=== PATIENT | female | born 1985 | race Caucasian/White ===

== ENCOUNTER 2016-05-15 08:08 | Inpatient (IN) | payer OTHER ==
[2016-05-15] MEDS ORDERED: LR 1,000 ML IV PRN (08:35)
[2016-05-15] MEDS ORDERED: OXYTOCIN/RINGERS LACTATE 1,000 ML IV PRN (08:35)
[2016-05-15] MEDS ORDERED: TERBUTALINE SULFATE 1 MG/ML VIAL IV PRN (08:35)
--- NOTE | 2016-05-15 08:41 | OBPROG ---
OBG Progress Note Assessment/Plan: Assessment: cat 1 fhr denies contractions discussed poc with pitocin and arom exam 3-/-1 cephalic elevated bp will do pih labs Plan: pitocin per protocol 05/15/16 08:39 05/15/16 08:40 Subjective: Doing well denies difficulties. Denies complaints. Requesting an epidural for pain relief when ready. - SVE Dilation (cm): 3 Effacement (%): 80 Station: -1 Current Contraction Pattern: Irregular FHR (bpm): 130 FHR Pattern Variability: Moderate FHR Category: 1 Membranes: Intact - Physical Exam General Appearance: WD/WN, alert, no apparent distress Respiratory: chest non-tender, lungs clear, normal breath sounds Cardiac/Chest: regular rate, rhythm Abdomen: normal bowel sounds Membranes: Intact DTR- Lower Extremities: Knee (R): 1+, Knee (L): 1+ (no clonus bilaterally) Skin: normal color, warm/dry Neuro/Psych: no motor/sensory deficits, alert, normal mood/affect, oriented x 3 ICD10 Worksheet Patient Problems: Problems Problem Status Onset iol postdates Acute
[2016-05-15] MEDS ORDERED: OXYTOCIN/RINGERS LACTATE 500 ML IV SCH (09:00)
--- NOTE | 2016-05-15 09:24 | GHP ---
DATE OF ADMISSION: 05/15/2016 The patient is a 4, T1, AB2, L1, 30-year-old, with an EDC of 05/15/2015, gestational age is 40 weeks. The patient states feeling positive movement. Denies leaking, bleeding, cramping. Patient is here for induction of labor at post term 40 weeks today. MEDICAL HISTORY: The patient is Rh negative. GBS negative. HSV type 1 positive. History of a hea rt murmur as a child. Has a gluten intolerance. Rare UTIs. History of anxiety. Has previously ta carlos Lexapro; 0 meds in the past 10 years. PAST SURGICAL HISTORY: Previous wisdom tooth extraction and a TAB in 2007. GYNECOLOGICAL HISTORY: History of OCP use. Previous positive HPV 2007 and 2008; zero colpo, zero t reatment, in 11/2014 within normal limits. Pap. PREVIOUS HISTORY: In 03/2012 a male that weighed 7 pounds 13 ounces at 40-5/7 weeks, 6-1/ 2 hours of labor, delivered vaginally with an epidural. Higher blood pressure after 37 weeks. Baby 's name is Jonathon. ALLERGIES: Patient is allergic to ciprofloxacin; complaint is swelling. MEDICATIONS: vitamins with DHEA daily. PLAN OF CARE: 1. Pitocin per protocol. 2. Epidural at patient's request. 3. Expectant management of labor. /[id number]/MODL
[2016-05-15 09:33] LABS: % IMMATURE GRANULYOCYTES 0.4 % (0.0-1.1); ABSOLUTE IMMATURE GRANULOCYTES 0.03 10^3/uL (0.00-0.10); ADD DIFF? NO; ADD MORPH? NO; ADD SCAN? NO; ATYPICAL LYMPHOCYTE FLAG 0 (0-99); FRAGMENT RBC FLAG 0 (0-99); HEMATOCRIT 40.4 % (38.0-47.0); LEFT SHIFT FLG 0 (0-99); LIPEMIA HEMOLYSIS FLAG 90 (0-99); MEAN CELL HEMOGLOBIN 29.9 pg (27.9-34.1); MEAN CELL HEMOGLOBIN CONCENTR. 34.7 g/dL (32.4-36.7); MEAN CELL VOLUME 86.1 fL (81.5-99.8); MEAN PLATELET VOLUME 10.8 fL (8.7-11.7); PLATELET CLUMPS FLAG 0 (0-99); PLATELET COUNT 150 10^3/uL (150-400); RED BLOOD CELL COUNT 4.69 10^6/uL (4.18-5.33); RED CELL DISTRIBUTION WIDTH 13.6 % (11.5-15.2)
[2016-05-15 09:53] LABS: ALANINE AMINOTRANSFERASE 29 IU/L (9-52); ALBUMIN 3.9 g/dL (3.5-5.0); ALKALINE PHOSPHATASE 241 IU/L (38-126); ANION GAP 11 mEq/L (8-16); ASPARTATE AMINOTRANSFERASE 29 IU/L (14-46); BILIRUBIN,TOTAL 0.6 mg/dL (0.1-1.4); BILIRUBIN-CONJUGATED 0.2 mg/dL (0.0-0.5); BILIRUBIN-UNCONJUGATED 0.4 mg/dL (0.0-1.1); CALCIUM 9.5 mg/dL (8.5-10.4); CARBON DIOXIDE 18 mEq/l (22-31); CHLORIDE 105 mEq/L (97-110); CREATININE 0.5 mg/dL (0.6-1.0); GLOMERULAR FILTRATION RATE > 60; GLUCOSE 90 mg/dL (70-100); POTASSIUM 4.7 mEq/L (3.5-5.2); SODIUM 134 mEq/L (134-144); TOTAL PROTEIN 6.9 g/dL (6.3-8.2); URIC ACID 6.5 mg/dL (2.5-6.8)
[2016-05-15] MEDS ORDERED: TERBUTALINE SULFATE 1 MG/ML VIAL ONE (11:02)
[2016-05-15] MEDS ORDERED: AMMONIA AROMATIC 1 EACH AMP IH ONE (11:02)
[2016-05-15] MEDS ORDERED: LIDOCAINE 1% 30 ML SDV ONE (11:02)
[2016-05-15] MEDS ORDERED: MISOPROSTOL 200 MCG TAB ONE (11:03)
[2016-05-15] MEDS ORDERED: OXYTOCIN 10 UNIT/ML VIAL ONE (11:03)
[2016-05-15] MEDS ORDERED: fentaNYL 2MCG/ML/BUP 0.1% RTU 100 ML BAG EP ONE (11:11)
[2016-05-15] MEDS ORDERED: PHENYLEPHRINE HCL 100 MCG/ML SYR ONE (11:11)
[2016-05-15] MEDS ORDERED: BUPIVACAINE 0.25% 30 ML SDV ONE (11:11)
[2016-05-15] MEDS ORDERED: fentaNYL 100 MCG/2 ML INJ ONE (11:12)
--- NOTE | 2016-05-15 11:54 | OBPROG ---
OBG Progress Note Assessment/Plan: Assessment: cat 1 fhr contractions q2-3 minutes epidural for pain relief feeling better after placement pain diminished exam /-1 cephalic arom clear fluid Plan: pitocin infusing, epidural in place3 at patient request change in cervix, arom clear fluid 05/15/16 08:39 05/15/16 08:40 05/15/16 11:52 Objective: 05/15/16 08:39 05/15/16 08:39 Patient ABO/Rh O NEGATIVE 05/15/16 08:39 Uric Acid 6.5 mg/dL (2.5-6.8) 05/15/16 08:39 Total Bilirubin 0.6 mg/dL (0.1-1.4) 05/15/16 08:39 Conjugated Bilirubin 0.2 mg/dL (0.0-0.5) 05/15/16 08:39 Unconjugated Bilirubin 0.4 mg/dL (0.0-1.1) 05/15/16 08:39 AST 29 IU/L (14-46) 05/15/16 08:39 ALT 29 IU/L (9-52) 05/15/16 08:39 - SVE Dilation (cm): 6 Effacement (%): 80 Station: -1 Current Contraction Pattern: Regular FHR (bpm): 130 FHR Pattern Variability: Moderate FHR Category: 1 Membranes: AROM Amniotic Fluid Color: Clear ICD10 Worksheet Patient Problems: Problems Problem Status Onset iol postdates Acute
[2016-05-15] MEDS ORDERED: ONDANSETRON 4 MG/2 ML VIAL IVP PRN (13:58)
[2016-05-15] MEDS ORDERED: PHENYLEPHRINE HCL 100 MCG/ML SYR IVP PRN (13:58)
[2016-05-15] MEDS ORDERED: LR 500 ML IV SCH (14:00)
[2016-05-15] MEDS ORDERED: fentaNYL 2MCG/ML/BUP 0.1% RTU 100 ML EP SCH (14:00)
--- NOTE | 2016-05-15 14:02 | POSTANESTH ---
Post Anesthetic Evaluation Cardiovascular Status: Normal, Stable, Similar to Pre-Op Cond (Tolerated CSE well, stable, comfortable.) Respiratory Status: Normal, Stable, Similar to Pre-op Cond. Level of Consciousness/Mental Status: Can Participate in Eval, Alert and Oriented Pain Control: Adequate, Prn Tx Ordered Nausea/Vomiting Control: Adequate, Prn Tx Ordered Complications Possibly Related to Anesthesia: None Noted
--- NOTE | 2016-05-15 14:05 | PREANESOB ---
Obstetric Pre-Anesthesia Info - General Info Proposed Procedure: Labor and delivery with pitocin. : 4 Para: 1 WBD: 40 - Info Status: Full Term Monitors: External FHR Baseline (bpm): 120 FHR Pattern: Reassuring - Labor Status Cervical Dilation per last OB SVE: 4 Station per last OB SVE: -1 Amniotic Fluid Color: Clear Pitocin: In Use Indications for Labor Analgesia: Induction of Labor, Pain Control Labor Epidural: Proposed Anesthesia ROS: Negative. Allergies/Adverse Reactions: Allergy/AdvReac Type Severity Reaction Status Date / Time ciprofloxacin [From Cipro] Allergy Verified 05/13/11 16:27 ciprofloxacin HCl Allergy Verified 05/13/11 16:27 [From Cipro] wheat Allergy Verified 03/25/12 02:29 Home Medications: Medication Instructions Recorded Lorazepam [Ativan] 0.5 mg PO BID #4 tablet 05/21/14 Visit Medications: Generic Name Dose Route Start Last Admin Trade Name Freq PRN Reason Stop Dose Admin Diphenhydramine HCl 25 - 50 mg 05/15/16 13:58 Benadryl Injection IVP 11/11/16 13:57 Q6HRS PRN Itching Lactated Ringer's 1,000 mls @ 0 mls/hr 05/15/16 08:35 Lr IV 11/11/16 08:34 PRN PRN SEE PROTOCOL CONDITIONS Protocol Per Protocol Oxytocin/Lactated Ringer's 1,000 mls @ 150 mls/hr 05/15/16 08:35 Pitocin 20 Units/Lr (Premix) IV PRN PRN Post- bleeding Oxytocin/Lactated Ringer's 500 mls @ 0 mls/hr 05/15/16 09:00 Pitocin 30 Units/Lr (Premix) IV 11/11/16 08:59 CONT LIANNA Protocol Per Protocol Fentanyl/Bupivacaine HCl 100 mls @ 0 mls/hr 05/15/16 14:00 Fentanyl/Bupivacaine/Ns 2 Mcg/Ml 0.1% (Premix EP 05/25/16 13:59 CONT LIANNA Protocol As Directed Lactated Ringer's 500 mls @ 0 mls/hr 05/15/16 14:00 Lr IV 11/11/16 13:59 CONT LIANNA As Directed Ibuprofen 600 mg 05/15/16 08:35 Motrin PO 11/11/16 08:34 Q6HRS PRN post , inflammation Ondansetron HCl 4 mg 05/15/16 13:58 Zofran IVP 11/11/16 13:57 Q4HRS PRN Nausea/Vomiting, Can't Take PO Phenylephrine HCl 100 mcg 05/15/16 13:58 Jorge Luis-Synephrine IVP 11/11/16 13:57 .Q2M PRN Hypotension Terbutaline Sulfate 0.25 mg 05/15/16 08:35 Brethine IV 11/11/16 08:34 ONCE PRN Tachysystole Discontinued Medications Generic Name Dose Route Start Last Admin Trade Name Freq PRN Reason Stop Dose Admin Ammonia (Aromatic Spirit) Confirm 05/15/16 11:02 Ammonia Aromatic Administered 05/15/16 11:03 Dose 1 each IH .STK-MED ONE Bupivacaine HCl Confirm 05/15/16 11:11 Sensorcaine 0.25% Sdv Administered 05/15/16 11:12 Dose 30 ml .ROUTE .STK-MED ONE Ephedrine Sulfate Confirm 05/15/16 11:02 Ephedrine Sulfate Administered 05/15/16 11:03 Dose 50 mg .ROUTE .STK-MED ONE Fentanyl Confirm 05/15/16 11:12 Sublimaze Administered 05/15/16 11:13 Dose 100 mcg .ROUTE .STK-MED ONE Fentanyl/Bupivacaine HCl Confirm 05/15/16 11:11 Fentanyl/Bupivacaine/Ns 2 Mcg/Ml 0.1% (Premix Administered 05/15/16 11:12 Dose 100 ml EP .STK-MED ONE Lidocaine HCl Confirm 05/15/16 11:02 Lidocaine Hcl 1% Administered 05/15/16 11:03 Dose 30 ml .ROUTE .STK-MED ONE Misoprostol Confirm 05/15/16 11:03 Cytotec Administered 05/15/16 11:04 Dose 1,000 mcg .ROUTE .STK-MED ONE Oxytocin Confirm 05/15/16 11:03 Pitocin Administered 05/15/16 11:04 Dose 40 unit .ROUTE .STK-MED ONE Phenylephrine HCl Confirm 05/15/16 11:11 Jorge Luis-Synephrine Administered 05/15/16 11:12 Dose 1,000 mcg .ROUTE .STK-MED ONE Terbutaline Sulfate Confirm 05/15/16 11:02 Brethine Administered 05/15/16 11:03 Dose 1 mg .ROUTE .STK-MED ONE - Anesthesia History Response to Local Anesthetics: Normal Anesthesia & Operative History: No Prior Problems - Focused Exam Blood Pressure: 122/90 Heart Rate: 94 Respiratory Rate: 18 Height/Weight (Nursing): Height 170.18 cm Weight 70.307 kg Physical Exam: Within normal limits. ASA Status: II Labs: 05/15/16 08:39 05/15/16 08:39 Patient ABO/Rh O NEGATIVE 05/15/16 08:39 Uric Acid 6.5 mg/dL (2.5-6.8) 05/15/16 08:39 Total Bilirubin 0.6 mg/dL (0.1-1.4) 05/15/16 08:39 Conjugated Bilirubin 0.2 mg/dL (0.0-0.5) 05/15/16 08:39 Unconjugated Bilirubin 0.4 mg/dL (0.0-1.1) 05/15/16 08:39 AST 29 IU/L (14-46) 05/15/16 08:39 ALT 29 IU/L (9-52) 05/15/16 08:39 - Plan Anesthetic Plan: CSE Consent Signed and on Chart: Yes Patient/Guardian Understands and Agrees to Plan: Yes
[2016-05-15] MEDS ORDERED: HYDROCORTISONE 0.5% CREAM TP PRN (14:15)
[2016-05-15] MEDS ORDERED: DOCUSATE SODIUM 100 MG CAP PO PRN (14:15)
[2016-05-15] MEDS ORDERED: ACETAMINOPHEN 325 MG TAB PO PRN (14:15)
[2016-05-15] MEDS ORDERED: SIMETHICONE 80 MG TAB CHEW PO PRN (14:15)
[2016-05-15] MEDS ORDERED: HYDROCODONE/APAP 5/325 TAB PO PRN (14:15)
--- NOTE | 2016-05-15 14:15 | OBPROC ---
- Labor and Delivery Onset of Contractions Date: 05/15/16 Onset of Contractions Time: 10:15 Onset of Contractions Type: Induced Rupture of Membranes Date: 05/15/16 Rupture of Membranes Time: 11:48 Rupture of Membranes Type: Artificial Amniotic Fluid Color: Clear Dilation Complete Time: 13:27 Delivery Type: Spontaneous Placenta Delivery Date: 05/15/16 Placenta Delivery Time: 13:52 Episiotomy/Laceration: 2nd Degree, Other (Specify) (right and left periurethral right repaired with 1 4.0 sh vicryl interuppted) Repair: 3-0, Vicryl EBL: 350 Complications: Nuchal Cord, Other (Specify) (true knot) - Medications Labor Augmentation/Induction Meds Used: Pitocin Labor Augmentation/Induction Indication: Other (Specify) (posterm 40 weeks today ) Anesthesia: Epidural - Info A Delivery Date: 05/15/16 Delivery Time: 13:45 Sex of : Male Score (1 Min): 8 Score (5 Min): 9
[2016-05-15] MEDS: IBUPROFEN 600 MG TAB PO PRN (17:13)
[2016-05-16] MEDS: IBUPROFEN 600 MG TAB PO PRN ×2 (00:37→08:01)
--- NOTE | 2016-05-16 09:34 | OBPROG ---
OBG Progress Note Assessment/Plan: Assessment: 30 y/o PPD #1 s/p IOL secondary to post dates doing well. Plan: Pt will decide about going home after baby has his circumcision today. Follow- up @ [facility] 4 and 6 weeks. Rx [place] and Ibuprofen. 05/16/16 09:34 Subjective: Pt is doing well this am. She has min pain controlled with Ibuprofen. Nursing is going well and baby is doing well. They may desire to d/c home later today. Objective: 05/15/16 08:39 05/15/16 08:39 Patient ABO/Rh O NEGATIVE 05/15/16 15:15 Uric Acid 6.5 mg/dL (2.5-6.8) 05/15/16 08:39 Total Bilirubin 0.6 mg/dL (0.1-1.4) 05/15/16 08:39 Conjugated Bilirubin 0.2 mg/dL (0.0-0.5) 05/15/16 08:39 Unconjugated Bilirubin 0.4 mg/dL (0.0-1.1) 05/15/16 08:39 AST 29 IU/L (14-46) 05/15/16 08:39 ALT 29 IU/L (9-52) 05/15/16 08:39 Temp Pulse Resp BP Pulse Ox 36.6 C 80 18 118/74 97 05/15/16 20:00 05/15/16 20:00 05/15/16 20:00 05/15/16 20:00 05/15/16 20:00 Uterine Position/Fundal Height: Umbilicus -2 Uterine Tone: Firm - Physical Exam General Appearance: WD/WN, alert, no apparent distress Neck: non-tender, full range of motion, supple Respiratory: chest non-tender, lungs clear, normal breath sounds Cardiac/Chest: regular rate, rhythm Abdomen: normal bowel sounds Extremities: swelling (no), Annie's sign (neg) ICD10 Worksheet Patient Problems: Problems Problem Status Onset Spontaneous vaginal delivery Acute iol postdates Acute
[2016-05-16 10:05] VITALS: BP 130/81; PULSE 86; RESP 14; TEMP 97.4; O2SAT 96
[2016-05-16] MEDS ORDERED: valACYclovir 500 MG TAB PO SCH (12:00)
== END 2016-05-16 17:00 | disposition home or self-care (01) | DRG 774 ==
LOC: FLD 08:08 → FOB 15:49
PROVIDERS: ADMIT Advanced Practice Midwife; ATTEND Advanced Practice Midwife
PROC: 3E033VJ Introduction of Other Hormone into Peripheral Vein, Percutaneous Approach (ICD-10-PCS; principal; 2016-05-15)
PROC: 10907ZC Drainage of Amniotic Fluid, Therapeutic from Products of Conception, Via Natural or Artificial Opening (ICD-10-PCS; principal; 2016-05-15)
PROC: 0KQM0ZZ Repair Perineum Muscle, Open Approach (ICD-10-PCS; principal; 2016-05-15)
PROC: 10E0XZZ Delivery of Products of Conception, External Approach (ICD-10-PCS; principal; 2016-05-15)
DX: O48.0 Post-term pregnancy (principal); O98.52 Other viral diseases complicating childbirth; Z37.0 Single live birth; Z3A.40 40 weeks gestation of pregnancy; B00.9 Herpesviral infection, unspecified; O70.1 Second degree perineal laceration during delivery
CPT/HCPCS: J2370; J2590; J3010; J3105

== ENCOUNTER 2016-07-14 14:56 | Emergency (ER) | payer OTHER ==
[2016-07-14 15:03] VITALS: RESP 16; TEMP 97.7
--- NOTE | 2016-07-14 15:14 | EDPHY ---
H & P Time Seen by Provider: 07/14/16 15:13 HPI/ROS: CHIEF COMPLAINT: Left leg discomfort HISTORY OF PRESENT ILLNESS: Patient presents with left leg discomfort starting last night. She says it is crampy feeling behind her left leg with little bit of numbness in her foot. Not associated with skin changes or incontinence or back pain. No recent trauma or injury. Not swollen. No chest pain or shortness of breath. Of note she has a 2-month-old at home. The patient also is here for evaluation of a headache. It was a little bit present yesterday and today was worse. It is similar to previous headaches that it is frontal but today it also radiates a little bit to the side of her head into the back of her head and very upper portion of her neck. She also says she has associated eye dryness. Symptoms of both are mild to moderate. REVIEW OF SYSTEMS: Eye: no change in vision, no double vision or blurry vision. ENT: no sore throat, no ear symptoms, no facial pain or swelling. Cardiac: no chest pain or syncope. A little bit lightheaded earlier today. Pulmonary: no cough or SOB Abdomen: no vomiting, diarrhea, abdominal pain Musculoskeletal: no back pain Skin: Cold sore on left upper lip healing after being on Valtrex Neuro: HPI, not confused, no vertigo or ataxia. Constitutional: no fever : no urinary symptoms No recent acceleration or deceleration injury. A comprehensive 10 point review of systems is otherwise negative aside from elements mentioned in the history of present illness. PAST MEDICAL HISTORY: Heart murmur, oral HSV, recent . Social history: , 2-month-old at home, family history positive for DVT in her mother after surgery, negative for intracranial aneurysm or any kind of dissection General Appearance: Alert and conversant, cooperative. Looks well. Smiles. Eyes: No scleral icterus. extraocular motion intact and no proptosis. ENT, Mouth: Normal mucous membranes. No facial swelling and no trismus. Normal pharynx. Respiratory: Normal respiratory effort, breath sounds equal, lungs are clear to auscultation. Cardiovascular: Regular rate and rhythm. Gastrointestinal: Abdomen is soft and non tender. Neurological: Alert and oriented x3. Normally conversant. Face symmetric, normal movement and sensation in all extremities. Not ataxic on walking back to the room. No pronator drift and normal [id number] bilaterally. No clonus. Patellar reflexes 2+ bilateral and symmetric. Skin: Warm and dry, no rashes. No leg redness. Musculoskeletal: Normal range of motion of the neck without meningeal signs. Normal range of motion of the knee and ankle on the left. Compartments are soft including calf and thigh. Psychiatric: Not agitated. Emergency Department course/MDM: Clinically I believe the patient's nontraumatic headache is not likely to be an acute medical emergent condition. 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 Patient has a normal left lower extremity examination but in light of her family history and recent ultrasound is discussed and consented to evaluate for DVT. 1615: Results discussed, stable for DC. Smoking Status: Never smoked Constitutional: Initial Vital Signs Temperature (C) 36.5 C 07/14/16 15:00 Heart Rate 64 07/14/16 15:00 Respiratory Rate 16 07/14/16 15:00 Blood Pressure 121/69 H 07/14/16 15:00 O2 Sat (%) 100 07/14/16 15:00 O2 Delivery Mode Room Air Allergies/Adverse Reactions: ciprofloxacin [From Cipro] Allergy (Verified 05/13/11 16:27) ciprofloxacin HCl [From Cipro] Allergy (Verified 05/13/11 16:27) wheat Allergy (Verified 03/25/12 02:29) Medical Decision Making - Diagnostics Imaging Results: Imaging Impressions Extremity Venous Study 07/14/16 15:33 Impression: Negative. No deep venous thrombosis. Findings discussed with Emergency Department physician, JANAK CLINE at 2016 16:12. Normal left leg ultrasound per [place] at 4:13 p.m. Differential Diagnosis: Differential for leg pain considered including but not limited to DVT, muscle spasm, Nelson cyst, inflammatory, cellulitis, compartment syndrome. Differential diagnosis considered for headache including but not limited to subarachnoid hemorrhage, migraine headache, tension headache and infectious causes such as meningitis, pharyngitis and sinusitis. - Data Points Medications Given: Discontinued Medications Ibuprofen (Motrin) 600 mg PO EDNOW ONE Stop: 07/14/16 15:47 Last Admin: 07/14/16 16:05 Dose: 600 mg Departure - Departure Disposition: Home, Routine, Self-Care Clinical Impression: Leg pain, left Headache Qualifiers: Headache type: unspecified Headache chronicity pattern: acute headache Intractability: not intractable Qualified Code(s): R51 - Headache Condition: Good Instructions: Acute Headache (ED), Leg Pain (ED) Additional Instructions: Normal left leg ultrasound, no blood clot seen. Referrals: Justine Alfonso CNM [Certified Nurse Search Engine Optimization Manager] - As per Instructions
[2016-07-14] MEDS ORDERED: IBUPROFEN 600 MG TAB PO ONE ×2 (15:46→15:48)
[2016-07-14 16:55] VITALS: BP 118/72; PULSE 68; O2SAT 98
== END 2016-07-14 16:55 | disposition home or self-care (01) ==
DX: R51 Headache (principal); M79.605 Pain in left leg